=== PATIENT | male | born 1985 | race Two or more races ===

== ENCOUNTER 2023-02-17 23:53 | Emergency (ER) | payer OTHER ==
[~2023-02-17] VITALS: Ht 162.6 cm; Wt 77.1 kg
[2023-02-18 05:36] VITALS: BP 127/84; TEMP 98.1; O2SAT 99
== END 2023-02-18 05:35 | disposition home or self-care (01) ==
LOC: ER 23:56
DX: F12.90 Cannabis use, unspecified, uncomplicated (principal); E03.9 Hypothyroidism, unspecified